=== PATIENT | female | born 1935 | race Caucasian/White ===

== ENCOUNTER 2019-12-24 17:00 | Emergency (ER) | payer MEDICARE ==
[~2019-12-24] VITALS: Ht 154.9 cm; Wt 53.5 kg
[2019-12-24 17:51] LABS: Source, Urine Clean Catch
[2019-12-24 18:04] LABS: Bilirubin, Urine Neg (Neg); Blood, Urine 3+ (Neg); Glucose Qualitative, Urine Neg (Neg); Ketones, Urine Neg (Neg); Leukocyte Esterase, Urine Neg (Neg); Nitrite, Urine Neg (Neg); Protein, Urine 3+ (Neg); Urobilinogen, Urine NORM (Normal); pH, Urine 6.5 (5.0-8.0)
[2019-12-24 18:14] LABS: Appearance, Urine Clear (Clear); Color, Urine Pale Yellow (P-Yellow)
[2019-12-24 18:15] LABS: Bacteria Few /hpf; Hyaline Casts 0-2 /lpf (0-2); Squamous Epithelial Cells Few /hpf (Few); White Blood Cells, Urine 0-2 /hpf (0-5)
[2019-12-24] MEDS ORDERED: Acetaminophen-1 EAC1 PO (20:36)
== END 2019-12-24 20:57 | disposition home or self-care (01) ==
LOC: ER 17:00
PROVIDERS: Emergency Medicine
DX: M54.5 Low back pain (principal); R31.9 Hematuria, unspecified
CPT/HCPCS: 72100; 76770; 81001; 99284-25; A9270-GY

== ENCOUNTER 2019-12-30 15:52 | Emergency (ER) | payer MEDICARE ==
[~2019-12-30] VITALS: Ht 154.9 cm; Wt 50.8 kg
[~2019-12-30 15:52] MED LIST: Acetaminophen-1 EAC1 PO
[2019-12-30] MEDS ORDERED: SPIRONOLACTONE25 MG PO (16:09)
[2019-12-30] MEDS ORDERED: CARVEDILOL12.5 MG PO (16:09)
[2019-12-30] MEDS ORDERED: AMLODIPINE BESYL5 MG PO (16:09)
[2019-12-30] MEDS ORDERED: Valtrex500 MG PO (16:09)
[2019-12-30] MEDS ORDERED: Magnesium Citr296 ML PO (18:18)
== END 2019-12-30 18:25 | disposition home or self-care (01) ==
LOC: ER 15:52
DX: K59.00 Constipation, unspecified (principal); Z79.899 Other long term (current) drug therapy
CPT/HCPCS: 74176; 99284-25

== ENCOUNTER 2020-01-03 11:06 | Emergency (ER) | payer MEDICARE ==
[~2020-01-03] VITALS: Ht 154.9 cm; Wt 45.4 kg
[~2020-01-03 11:06] MED LIST changes: +AMLODIPINE BESYL5 MG PO; +CARVEDILOL12.5 MG PO; +Magnesium Citr296 ML PO; +SPIRONOLACTONE25 MG PO; +Valtrex500 MG PO
[2020-01-03] MEDS ORDERED: LAVAP4L PO (13:06)
== END 2020-01-03 14:46 | disposition home or self-care (01) ==
LOC: ER 11:06
DX: K59.00 Constipation, unspecified (principal); Z79.899 Other long term (current) drug therapy
CPT/HCPCS: 99283

== ENCOUNTER 2020-01-10 13:17 | Emergency (ER) | payer MEDICARE ==
[~2020-01-10] VITALS: Ht 152.4 cm; Wt 45.4 kg
[~2020-01-10 13:17] MED LIST changes: +LAVAP4L PO
[2020-01-10 14:05] LABS: BASOPHILS ABSOLUTE AUTO 0.03 K/mm3 (0.00-0.23); BASOPHILS PERCENT AUTO 1 % (0-2); EOSINOPHILS ABSOLUTE AUTO 0.15 K/mm3 (0.00-0.68); EOSINOPHILS PERCENT AUTO 3 % (0-6); Hematocrit 42.5 % (33.0-51.0); Hemoglobin 14.1 g/dL (11.5-16.0); IMMATURE GRAN ABSOLUTE AUTO 0.02 K/mm3 (0.00-0.10); IMMATURE GRAN PERCENT AUTO 1 % (0-1); LYMPHOCYTES ABSOLUTE AUTO 0.77 K/mm3 (0.84-5.20); LYMPHOCYTES PERCENT AUTO 18 % (21-46); MONOCYTES ABSOLUTE AUTO 0.58 K/mm3 (0.16-1.47); MONOCYTES PERCENT AUTO 13 % (4-13); Mean Corpuscular HGB 31.7 pg (26.0-34.0); Mean Corpuscular HGB Conc 33.2 g/dL (31.5-36.5); Mean Corpuscular Volume 96 fL (80-100); Mean Platelet Volume 9.2 fL (9.1-12.4); NEUTROPHILS ABSOLUTE AUTO 2.86 K/mm3 (1.96-9.15); NEUTROPHILS PERCENT AUTO 65 % (41-73); Platelet Count 227 K/mm3 (150-400); RDW Coefficient Variation 12.2 % (11.7-14.2); RDW Standard Deviation 42.1 fL (35.1-46.3); Red Blood Cell Count 4.45 M/mm3 (3.80-5.20); White Blood Cell Count 4.41 K/mm3 (4.00-11.30)
[2020-01-10 14:28] LABS: Albumin, Blood 3.4 g/dL (3.4-5.0); Albumin/Globulin Ratio 0.9 (0.8-1.8); Bilirubin, Total 0.7 mg/dL (0.1-1.0); Bun/Creatinine Ratio 19.1 (12.0-20.0); Calcium, Blood 9.5 mg/dL (8.5-10.1); Creatinine, Blood 1.62 mg/dL (0.40-1.00); Globulin, Blood 3.9 g/dL (2.2-4.0); Potassium, Blood 4.4 mmol/L (3.5-5.5); Total Protein, Blood 7.3 g/dL (6.4-8.2)
== END 2020-01-10 16:31 | disposition home or self-care (01) ==
LOC: ER 13:17
PROVIDERS: Nurse Practitioner
DX: B02.9 Zoster without complications (principal); E87.1 Hypo-osmolality and hyponatremia; N18.9 Chronic kidney disease, unspecified; Z79.899 Other long term (current) drug therapy
CPT/HCPCS: 36415; 74176; 80053; 85025; 96361; 96374; 96376; 99284-25; A9270; J3010; J7030

== ENCOUNTER 2020-02-06 08:59 | Emergency (ER) | payer MEDICARE ==
[~2020-02-06] VITALS: Ht 154.9 cm; Wt 45.4 kg
[2020-02-06 10:26] LABS: Source, Urine Clean Catch
[2020-02-06 10:32] LABS: Bilirubin, Urine Neg (Neg); Blood, Urine 2+ (Neg); Glucose Qualitative, Urine Neg (Neg); Ketones, Urine Neg (Neg); Leukocyte Esterase, Urine Neg (Neg); Nitrite, Urine Neg (Neg); Protein, Urine 4+ (Neg); Urobilinogen, Urine NORM (Normal)
[2020-02-06 10:39] LABS: Appearance, Urine Clear (Clear); Color, Urine Yellow (P-Yellow)
[2020-02-06 10:40] LABS: Bacteria Not Seen /hpf; Squamous Epithelial Cells Rare /hpf (Few); White Blood Cells, Urine 0-2 /hpf (0-5)
[2020-02-06] MEDS ORDERED: DULCOLAX5 MG PO (11:08)
[2020-02-06] MEDS ORDERED: LIDO700A20 TOP (11:08)
== END 2020-02-06 10:59 | disposition home or self-care (01) ==
LOC: ER 08:59
PROVIDERS: Physician Assistant
DX: K59.00 Constipation, unspecified (principal); B02.9 Zoster without complications
CPT/HCPCS: 74022; 81001; 99283-25

== ENCOUNTER 2020-09-14 08:30 | Emergency (ER) | payer MEDICARE ==
[~2020-09-14] VITALS: Ht 152.4 cm; Wt 46.3 kg
[~2020-09-14 08:30] MED LIST changes: -AMLODIPINE BESYL5 MG PO; -CARVEDILOL12.5 MG PO; +DULCOLAX5 MG PO; +LIDO700A20 TOP; -SPIRONOLACTONE25 MG PO
[2020-12-24] MEDS ORDERED: ACET500 PO (20:37)
== END 2020-09-14 10:11 | disposition home or self-care (01) ==
LOC: ER 08:30
DX: S81.812A Laceration without foreign body, left lower leg, initial encounter (principal); S81.811A Laceration without foreign body, right lower leg, initial encounter; Z79.899 Other long term (current) drug therapy; W01.0XXA Fall on same level from slipping, tripping and stumbling without subsequent striking against object, initial encounter
CPT/HCPCS: 99282

== ENCOUNTER 2020-10-05 18:03 | Observation (INO) | payer MEDICARE ==
[~2020-10-05] VITALS: Ht 154.9 cm; Wt 42.7 kg
[2020-10-05 18:48] LABS: BASOPHILS ABSOLUTE AUTO 0.03 K/mm3 (0.00-0.23); BASOPHILS PERCENT AUTO 1 % (0-2); EOSINOPHILS ABSOLUTE AUTO 0.02 K/mm3 (0.00-0.68); EOSINOPHILS PERCENT AUTO 0 % (0-6); Hemoglobin 15.2 g/dL (11.5-16.0); IMMATURE GRAN ABSOLUTE AUTO 0.07 K/mm3 (0.00-0.10); IMMATURE GRAN PERCENT AUTO 1 % (0-1); LYMPHOCYTES ABSOLUTE AUTO 0.62 K/mm3 (0.84-5.20); LYMPHOCYTES PERCENT AUTO 11 % (21-46); MONOCYTES PERCENT AUTO 11 % (4-13); Mean Corpuscular HGB 32.4 pg (26.0-34.0); Mean Corpuscular Volume 105 fL (80-100); Mean Platelet Volume 10.7 fL (9.1-12.4); NEUTROPHILS ABSOLUTE AUTO 4.19 K/mm3 (1.96-9.15); NEUTROPHILS PERCENT AUTO 76 % (41-73); Platelet Count 163 K/mm3 (150-400); RDW Coefficient Variation 13.5 % (11.7-14.2); RDW Standard Deviation 51.7 fL (35.1-46.3); Red Blood Cell Count 4.69 M/mm3 (3.80-5.20); White Blood Cell Count 5.53 K/mm3 (4.00-11.30)
[2020-10-05 19:20] LABS: Albumin, Blood 3.3 g/dL (3.4-5.0); Bilirubin, Total 0.3 mg/dL (0.1-1.0); Bun/Creatinine Ratio 27.3 (12.0-20.0); Calcium, Blood 9.2 mg/dL (8.5-10.1); Creatinine, Blood 1.61 mg/dL (0.40-1.00); Globulin, Blood 3.3 g/dL (2.2-4.0); Potassium, Blood 4.5 mmol/L (3.5-5.5); Total Protein, Blood 6.6 g/dL (6.4-8.2)
[2020-10-05 21:51] LABS: Source, Urine Clean Catch
[2020-10-05 21:56] LABS: Bilirubin, Urine Neg (Neg); Blood, Urine 2+ (Neg); Glucose Qualitative, Urine Neg (Neg); Ketones, Urine Neg (Neg); Leukocyte Esterase, Urine Neg (Neg); Nitrite, Urine Neg (Neg); Protein, Urine 4+ (Neg); Urobilinogen, Urine NORM (Normal)
[2020-10-05 21:59] LABS: Appearance, Urine Clear (Clear); Color, Urine Yellow (P-Yellow)
[2020-10-05 22:06] LABS: Bacteria Few /hpf; Squamous Epithelial Cells Rare /hpf (Few); White Blood Cells, Urine Rare /hpf (0-5)
[2020-10-05 22:07] LABS: Amorphous Light (0-Heavy)
[2020-10-06 06:23] LABS: BASOPHILS ABSOLUTE AUTO 0.02 K/mm3 (0.00-0.23); BASOPHILS PERCENT AUTO 0 % (0-2); EOSINOPHILS ABSOLUTE AUTO 0.05 K/mm3 (0.00-0.68); EOSINOPHILS PERCENT AUTO 1 % (0-6); Hematocrit 44.7 % (33.0-51.0); Hemoglobin 13.5 g/dL (11.5-16.0); IMMATURE GRAN ABSOLUTE AUTO 0.05 K/mm3 (0.00-0.10); IMMATURE GRAN PERCENT AUTO 1 % (0-1); LYMPHOCYTES ABSOLUTE AUTO 0.69 K/mm3 (0.84-5.20); LYMPHOCYTES PERCENT AUTO 15 % (21-46); MONOCYTES ABSOLUTE AUTO 0.49 K/mm3 (0.16-1.47); MONOCYTES PERCENT AUTO 11 % (4-13); Mean Corpuscular HGB 31.3 pg (26.0-34.0); Mean Corpuscular HGB Conc 30.2 g/dL (31.5-36.5); Mean Corpuscular Volume 104 fL (80-100); Mean Platelet Volume 10.9 fL (9.1-12.4); NEUTROPHILS ABSOLUTE AUTO 3.23 K/mm3 (1.96-9.15); NEUTROPHILS PERCENT AUTO 71 % (41-73); Platelet Count 123 K/mm3 (150-400); RDW Coefficient Variation 13.3 % (11.7-14.2); RDW Standard Deviation 51.7 fL (35.1-46.3); Red Blood Cell Count 4.31 M/mm3 (3.80-5.20); White Blood Cell Count 4.53 K/mm3 (4.00-11.30)
[2020-10-06 06:33] LABS: Albumin, Blood 2.8 g/dL (3.4-5.0); Bilirubin, Total 0.2 mg/dL (0.1-1.0); Bun/Creatinine Ratio 27.2 (12.0-20.0); Calcium, Blood 8.7 mg/dL (8.5-10.1); Creatinine, Blood 1.69 mg/dL (0.40-1.00); Globulin, Blood 2.9 g/dL (2.2-4.0); Potassium, Blood 4.4 mmol/L (3.5-5.5); Total Protein, Blood 5.7 g/dL (6.4-8.2)
--- NOTE | 2020-10-06 14:00 | NUR ---
PT ADMITTED TO ROOM 310 FROM ED AT 1305. TRANSFERRED TO BED FROM [facility] WITH ASSIST. CAME UP WITH OXYGEN IN PLACE. PT REPORTED SHE FELT LIKE WHENEVER SHE WAKES UP SHE IS IN A NEW PLACE.
--- NOTE | 2020-10-06 19:09 | NUR ---
SHIFT SUMMARY SON AT BEDSIDE MOST OF THE AFTERNOON. HE REPORTS PT IS MORE APPROPRIATE THIS AFTERNOON THAN LAST NIGHT. PT HAS BEEN ON O2 SINCE ARRIVAL TO ROOM. ABLE TO ANSWER ORIENTATION QUESTIONS APPROPRIATELY BUT SAYS SHE CAN'T REMEMBER HOW TO TAKE A DEEP BREATH IN AND WHEN ASKED TAKES A SHORT BREATH IN AND BLOWS OUT HARD. HAS A WEAK COUGH AND HAS DIFFICULTY CLEARING HER THROAT. SON REPORTS SHE GENERALLY SOUNDS A LITTLE GURGGLY WHEN SHE TALKS AND HE FELT IT MAY BE RELATED TO HER POST NASAL DRIP. REPORTED BEING HUNGRY CLOSE TO DINNERTIME.
[2020-10-07 05:21] LABS: BASOPHILS ABSOLUTE AUTO 0.02 K/mm3 (0.00-0.23); BASOPHILS PERCENT AUTO 1 % (0-2); EOSINOPHILS ABSOLUTE AUTO 0.05 K/mm3 (0.00-0.68); EOSINOPHILS PERCENT AUTO 1 % (0-6); Hematocrit 41.3 % (33.0-51.0); Hemoglobin 12.3 g/dL (11.5-16.0); IMMATURE GRAN ABSOLUTE AUTO 0.02 K/mm3 (0.00-0.10); IMMATURE GRAN PERCENT AUTO 1 % (0-1); LYMPHOCYTES ABSOLUTE AUTO 0.57 K/mm3 (0.84-5.20); LYMPHOCYTES PERCENT AUTO 16 % (21-46); MONOCYTES ABSOLUTE AUTO 0.44 K/mm3 (0.16-1.47); MONOCYTES PERCENT AUTO 12 % (4-13); Mean Corpuscular HGB 31.7 pg (26.0-34.0); Mean Corpuscular HGB Conc 29.8 g/dL (31.5-36.5); Mean Corpuscular Volume 106 fL (80-100); Mean Platelet Volume 10.9 fL (9.1-12.4); NEUTROPHILS ABSOLUTE AUTO 2.53 K/mm3 (1.96-9.15); NEUTROPHILS PERCENT AUTO 70 % (41-73); Platelet Count 124 K/mm3 (150-400); RDW Coefficient Variation 13.7 % (11.7-14.2); RDW Standard Deviation 53.8 fL (35.1-46.3); Red Blood Cell Count 3.88 M/mm3 (3.80-5.20); White Blood Cell Count 3.63 K/mm3 (4.00-11.30)
[2020-10-07 05:44] LABS: Albumin, Blood 2.6 g/dL (3.4-5.0); Bilirubin, Total 0.3 mg/dL (0.1-1.0); Bun/Creatinine Ratio 27.5 (12.0-20.0); Calcium, Blood 8.7 mg/dL (8.5-10.1); Creatinine, Blood 2.04 mg/dL (0.40-1.00); Globulin, Blood 2.7 g/dL (2.2-4.0); Potassium, Blood 4.5 mmol/L (3.5-5.5); Total Protein, Blood 5.3 g/dL (6.4-8.2)
--- NOTE | 2020-10-07 17:01 | NUR ---
PT WAS DISCHARGED HOME WITH BELONGINGS AND FAMILY AT SIDE. PT MADE NO C/O PAIN OR SOB AT THE TIME OF DISCHARGE. PT WAS EDUCATED ON FOLLOW APPOINTMENTS NEEDED. IV WAS DC'D AND WNL.
[2020-12-24] MEDS ORDERED: ACET500 PO (20:37)
== END 2020-10-07 16:33 | disposition home health service (06) ==
LOC: ER 18:03 → ERHOLD 18:04 → ER 10-06 00:13 → ERHOLD 10-06 00:13 → MEDS 10-06 00:13 → ERHOLD 10-06 13:06 → MEDS 10-06 13:06 → ENPENDDIS 10-07 15:22 → MEDS 10-07 16:33
PROVIDERS: Internal Medicine; Physician Assistant; ADMIT Internal Medicine
DX: G92 Toxic encephalopathy (principal); J96.01 Acute respiratory failure with hypoxia; J90 Pleural effusion, not elsewhere classified; K59.00 Constipation, unspecified; N18.4 Chronic kidney disease, stage 4 (severe); I13.0 Hypertensive heart and chronic kidney disease with heart failure and stage 1 through stage 4 chronic kidney disease, or unspecified chronic kidney disease; I50.9 Heart failure, unspecified; G47.33 Obstructive sleep apnea (adult) (pediatric); Z66 Do not resuscitate
CPT/HCPCS: 36415; 70450; 71046; 74176; 80053; 81001; 83880; 85025; 87086; 93005; 93010; 93306; 94761; 97110; 97116; 97129; 97162; 97165; 97530; 99285-25; A9270; G0378; J1650; J1940; P9612

== ENCOUNTER 2020-11-10 10:48 | Emergency (ER) | payer MEDICARE ==
[~2020-11-10] VITALS: Ht 154.9 cm; Wt 43.5 kg
[2020-11-10 11:23] LABS: BASOPHILS ABSOLUTE AUTO 0.02 K/mm3 (0.00-0.23); BASOPHILS PERCENT AUTO 1 % (0-2); EOSINOPHILS ABSOLUTE AUTO 0.11 K/mm3 (0.00-0.68); EOSINOPHILS PERCENT AUTO 3 % (0-6); Hematocrit 40.3 % (33.0-51.0); Hemoglobin 12.9 g/dL (11.5-16.0); IMMATURE GRAN ABSOLUTE AUTO 0.01 K/mm3 (0.00-0.10); IMMATURE GRAN PERCENT AUTO 0 % (0-1); LYMPHOCYTES ABSOLUTE AUTO 0.44 K/mm3 (0.84-5.20); LYMPHOCYTES PERCENT AUTO 14 % (21-46); MONOCYTES ABSOLUTE AUTO 0.36 K/mm3 (0.16-1.47); MONOCYTES PERCENT AUTO 11 % (4-13); Mean Corpuscular HGB 32.7 pg (26.0-34.0); Mean Corpuscular Volume 102 fL (80-100); Mean Platelet Volume 9.7 fL (9.1-12.4); NEUTROPHILS ABSOLUTE AUTO 2.26 K/mm3 (1.96-9.15); NEUTROPHILS PERCENT AUTO 71 % (41-73); Platelet Count 148 K/mm3 (150-400); RDW Coefficient Variation 12.8 % (11.7-14.2); RDW Standard Deviation 48.5 fL (35.1-46.3); Red Blood Cell Count 3.94 M/mm3 (3.80-5.20)
[2020-11-10 11:36] LABS: Albumin, Blood 3.3 g/dL (3.4-5.0); Bilirubin, Total 0.3 mg/dL (0.1-1.0); Bun/Creatinine Ratio 32.7 (12.0-20.0); Creatinine, Blood 1.65 mg/dL (0.40-1.00); Globulin, Blood 3.3 g/dL (2.2-4.0); Potassium, Blood 4.9 mmol/L (3.5-5.5); Total Protein, Blood 6.6 g/dL (6.4-8.2)
[2020-11-10 14:39] LABS: Source, Urine Clean Catch
[2020-11-10 14:53] LABS: Appearance, Urine Cloudy (Clear); Bilirubin, Urine Neg (Neg); Blood, Urine 2+ (Neg); Color, Urine Yellow (P-Yellow); Glucose Qualitative, Urine Neg (Neg); Ketones, Urine Neg (Neg); Leukocyte Esterase, Urine 2+ (Neg); Nitrite, Urine Neg (Neg); Protein, Urine 3+ (Neg); Urobilinogen, Urine NORM (Normal)
[2020-11-10 15:07] LABS: Bacteria Many /hpf; Squamous Epithelial Cells Few /hpf (Few); White Blood Cells, Urine TNTC /hpf (0-5)
[2020-11-10] MEDS ORDERED: Keflex500 MG PO (15:53)
[2020-12-24] MEDS ORDERED: ACET500 PO (20:37)
== END 2020-11-10 16:25 | disposition home or self-care (01) ==
LOC: ER 10:48
PROVIDERS: Emergency Medicine
DX: S81.811A Laceration without foreign body, right lower leg, initial encounter (principal); N39.0 Urinary tract infection, site not specified; Z79.899 Other long term (current) drug therapy; W18.30XA Fall on same level, unspecified, initial encounter
CPT/HCPCS: 36415; 80053; 81001; 85025; 87077; 87086; 87186; 93005; 93010; 96365; 99284-25; J0696

== ENCOUNTER 2020-12-17 12:19 | Inpatient (IN) | payer MEDICARE ==
[~2020-12-17] VITALS: Ht 144.8 cm; Wt 41.6 kg
[~2020-12-17 12:19] MED LIST changes: +Keflex500 MG PO
[2020-12-17 13:29] LABS: Source, Urine Clean Catch
[2020-12-17 13:31] LABS: Appearance, Urine Hazy (Clear); Bilirubin, Urine Neg (Neg); Blood, Urine 2+ (Neg); Color, Urine Yellow (P-Yellow); Glucose Qualitative, Urine Neg (Neg); Ketones, Urine Neg (Neg); Leukocyte Esterase, Urine 1+ (Neg); Nitrite, Urine Neg (Neg); Protein, Urine 4+ (Neg); Urobilinogen, Urine NORM (Normal)
[2020-12-17 13:56] LABS: Bacteria Many /hpf; Granular Casts 0-2 /lpf (0); Squamous Epithelial Cells Few /hpf (Few)
[2020-12-17 14:38] LABS: Albumin, Blood 3.2 g/dL (3.4-5.0); Albumin/Globulin Ratio 1.1 (0.8-1.8); Bilirubin, Total 0.3 mg/dL (0.1-1.0); Bun/Creatinine Ratio 25.5 (12.0-20.0); Calcium, Blood 8.8 mg/dL (8.5-10.1); Creatinine, Blood 1.96 mg/dL (0.40-1.00); Potassium, Blood 5.2 mmol/L (3.5-5.5); Total Protein, Blood 6.2 g/dL (6.4-8.2)
[2020-12-17 17:47] LABS: BASOPHILS ABSOLUTE AUTO 0.03 K/mm3 (0.00-0.23); BASOPHILS PERCENT AUTO 1 % (0-2); EOSINOPHILS ABSOLUTE AUTO 0.02 K/mm3 (0.00-0.68); EOSINOPHILS PERCENT AUTO 0 % (0-6); Hematocrit 42.3 % (33.0-51.0); IMMATURE GRAN ABSOLUTE AUTO 0.04 K/mm3 (0.00-0.10); IMMATURE GRAN PERCENT AUTO 1 % (0-1); LYMPHOCYTES PERCENT AUTO 15 % (21-46); MONOCYTES PERCENT AUTO 11 % (4-13); Mean Corpuscular HGB 32.8 pg (26.0-34.0); Mean Corpuscular HGB Conc 30.7 g/dL (31.5-36.5); Mean Corpuscular Volume 107 fL (80-100); Mean Platelet Volume 10.2 fL (9.1-12.4); NEUTROPHILS ABSOLUTE AUTO 3.49 K/mm3 (1.96-9.15); NEUTROPHILS PERCENT AUTO 73 % (41-73); Platelet Count 132 K/mm3 (150-400); RDW Coefficient Variation 12.7 % (11.7-14.2); RDW Standard Deviation 49.8 fL (35.1-46.3); Red Blood Cell Count 3.96 M/mm3 (3.80-5.20); White Blood Cell Count 4.78 K/mm3 (4.00-11.30)
--- NOTE | 2020-12-17 21:37 | NUR ---
PATIENT IS A NEW ADMIT FROM THE ED. THREE PERSON TRANSFER FROM [facility] TO BED. PATIENT TOO WEAK WITH TWO ASSIST W/FWW TO [facility] AND SAT BACK DOWN ON BED. BEDREST. ALERT TO SELF AND SON IN ROOM. FLIGHT OF IDEAS. SON LEFT AFTER ADMIT. HX DEMENTIA. ED RN REPORTS PATIENT CONFRONTATIONAL, AGRESSIVE BEHAVIOR, ANGRY, AND SCRATCHING STAFF. PATIENT ORIENTED TO ROOM AND CALL LIGHT. DENIES PAIN AND N/V. STATING 87% ON ROOM AIR. PLACED ON 2L O2 NC AND STATING 96%. SON REPORTS HE IS CHECKING ON [facility].
--- NOTE | 2020-12-17 21:45 | NUR ---
PATIENT STARTED ON NS @ 75 mL/HR. HOSPITALIST JUHI CLARK ORDERED BILATERAL SOFT WRIST RESTRAINTS WITH ADINA VEST TO PROTECT LINES, CORDS, FALL RISK, AND AGRESSIVE BEHAVIOR.
--- NOTE | 2020-12-17 23:35 | NUR ---
PATIENT CONFUSED AND BED EXIT ALARM. PULLED BILATERAL WRIST RESTRAINTS OFF. PATIENT NOT SURE HOW AND WHY SHE IS HERE. ORIENTED TO PLACE AND SITUATION. ALARM ACTIVATED AND RESTRAINTS BACK IN PLACE.
--- NOTE | 2020-12-18 03:00 | NUR ---
RT REPORTS HE SETUP CONTINUOUS PULSE OXIMETRY AND INCREASED O2 FLOW RATE FROM 2L TO 4L O2 NC. PATIENT WAS STATING IN HIGH 80'S AND NOW STATING 96%.
--- NOTE | 2020-12-18 03:09 | NUR ---
SHIFT SUMMARY RT PLACED PATIENT ON 4L O2 NC FROM 2L O2 NC AND RA ON ADMIT. STATING 96% ON CONTINUOUS PULSE OXIMETRY. HX SHA. ALERT TO SELF AND SON. NO MONTH, PLACE, DATE, OR HOW SHE GOT TO FACILITY. BEDREST. CONFUSED WITH HX OF DEMENTIA. WORRIED ABOUT PEOPLE COMING TO TRY AND KILL HER. FLIGHT OF IDEAS. HOSPITALIST JUHI ENERGY DERIVATIVES TRADER ORDERED BILATERAL SOFT WRIST RESTRAINTS AND ADINA VEST TO PREVENT FALLS, PULLING AT LINES AND CORDS AND INCREASED AGITATION. DENIES PAIN AND N/V. PIV REMAINS INTACT. NS INFUSING AT 75 mL/HR. SON REPORTS HE IS CHECKING ON [facility]. BED IN LOWEST POSITION AND ALARM ACTIVATED. WILL CONTINUE TO MONITOR UNTIL DAY SHIFT NURSE ASSUMES CARE.
[2020-12-18 05:21] LABS: Hematocrit 45.5 % (33.0-51.0); Hemoglobin 13.9 g/dL (11.5-16.0); Mean Corpuscular HGB 32.5 pg (26.0-34.0); Mean Corpuscular HGB Conc 30.5 g/dL (31.5-36.5); Mean Corpuscular Volume 106 fL (80-100); Mean Platelet Volume 10.2 fL (9.1-12.4); Platelet Count 153 K/mm3 (150-400); RDW Coefficient Variation 13.1 % (11.7-14.2); RDW Standard Deviation 51.3 fL (35.1-46.3); Red Blood Cell Count 4.28 M/mm3 (3.80-5.20); White Blood Cell Count 5.35 K/mm3 (4.00-11.30)
[2020-12-18 05:45] LABS: Bun/Creatinine Ratio 25.5 (12.0-20.0); Calcium, Blood 8.1 mg/dL (8.5-10.1); Potassium, Blood 4.4 mmol/L (3.5-5.5)
--- NOTE | 2020-12-18 08:30 | NUR ---
TRANSFER TO 351 PT TRANSFERED TO ROOM 351. PT SLEEPING AT TIME OF ARRIVAL. LETHARGIC. ALERT TO PAINFUL STIMULI & MOVEMENT. THIS IS CONSISTANT FROM PREVIOUS NURSES REPORT. CALL LIGHT IN REACH. RESTRAINTS IN PLACE.
--- NOTE | 2020-12-18 10:00 | NUR ---
O2 TITRATED O2 TITRATED DOWN FROM 4L O2 TO 3L O2. PT SATING AT 97% AFTER TITRATION.
[2020-12-18 11:47] LABS: Base Excess Venous 8.9 mmol/L; Bicarbonate Venous 29.4 mmol/L (24.0-30.0); PCO2 Venous 83.1 mmHg (38-42); PO2 Venous 184 mmHg (38-42); pH Blood Venous 7.25 (7.34-7.37)
--- NOTE | 2020-12-18 12:07 | NUR ---
BIPAP DR. CHAUDHARI CALLED BACK AFTER BEING NOTIFIED OF VBG VALUES. BIPAP ORDER IN PLACE. HARPREET RT NOTIFIED & TO SET UP M SERIES BIPAP.
--- NOTE | 2020-12-18 13:35 | NUR ---
08[address] CHAUDHARI NOTIFIED, RECIEVED ORDERS TO STRAIGHT CATH FOR BLADDER SCAN GREATER THAN 450 ML Q6 NO VOID, AND BLADDER SCAN Q6H. 0830 PT TRANSFERED TO SCU FOR [facility] MONITORING SECONDARY RESTRAINTS. PT STRAIGHT CATHED, VOLUME DOCUMENTED IN I&O. REPORT GIVEN TO CLARA MANDEL PRIOR TO TRANSFER.
[2020-12-18 15:46] LABS: Base Excess Venous 13.5 mmol/L; Bicarbonate Venous 33.4 mmol/L (24.0-30.0); PCO2 Venous 68.6 mmHg (38-42); PO2 Venous 30.8 mmHg (38-42); pH Blood Venous 7.36 (7.34-7.37)
--- NOTE | 2020-12-18 16:22 | NUR ---
LOC IMPROVED PT NOW ALERT. ORIENTED TO SELF ONLY. UNABLE TO PROVIDE THE YEAR OR HER BIRTHDAY. PT VERY CONFUSED. ASKING "WILL YOU BE KILLED TODAY TOO". PT SON STATES SHE HAS BEEN HAVING PARANOID DELUSIONS FOR A FEW DAYS PRIOR TO ADMISSION. PT TOO PARANOID TO EAT OR DRINK, STATING "I KNOW YOU PUT SOMETHING IN THAT". PT IS SPEAKING IN FULL SENTENCES, WHICH IS IMPROVEMENT FROM EARLIER IN THE SHIFT.
--- NOTE | 2020-12-18 18:25 | NUR ---
SHIFT SUMMARY PT MENTATION HAS IMPROVED GREATLY T/O THE SHIFT, ESPECIALLY AFTER THE USE OF THE BIPAP. REPEAT VBG SHOWED IMPROVED VALUES AND A NORMAL PH. DR. CHAUDHARI & DR. DHALIWAL AWARE. DR. CHAUDHARI INSTRUCTED TO PLACE PT BACK ON BIPAP FOR NIGHTTIME, BUT OKAY TO LET HER EAT AND TAKE A BREAK THE REST THE SHIFT. PT SON BROUGHT HER FIVE GUYS FOR DINNER, PT AT APPROX 25%. NO PROBLEMS SWALLOWING. WOUND ON R FISHER PHOTOGRAPHED & REDRESSED. PT SON STATES IT WAS FROM A PRIOR FALL AT HOME. PT BLADDER SCANNED TODAY WITH LESS THAN 200 VOLUME. LATER THIS AFTERNOON, PT WAS TRANSFERED TO [facility] [place] A 2P ASSIST AND VOIDED ON HER OWN. LR RUNNING 125 AN HOUR IN A NEW IV AFTER PT PULLED OUT HER ORIGINAL IV. IV CONCEALED WITH COBAN, SO FAR PT IS LEAVING IT ALONE. PT CONTINUES TO NOT NEED RESTRAINTS AT THIS TIME. PT EXTREMELY TIRED AFTER TRANSFER TO [facility] AND BACK, PT NOT SLEEPING HARD, SO AFTERNOON PILLS WERE HELD IT IS UNSAFE TO SWALLOW WITH PT BEING THIS TIRED. BED ALARM ON. REMOTE MONITORING IN PLACE. VS RECHECKED & REVIEWED. NO OTHER ACUTE CHANGES IN ASSESSMENT AT THIS TIME. SEE PREVIOUS NOTES. PT SON, TAMIE UPDATED ON PT CONDITION.
[2020-12-19 05:17] LABS: Calcium, Blood 8.4 mg/dL (8.5-10.1); Creatinine, Blood 1.71 mg/dL (0.40-1.00); Potassium, Blood 4.6 mmol/L (3.5-5.5)
--- NOTE | 2020-12-19 05:35 | NUR ---
PT IS CONFUSED, TRIED MULTIPLE TIMES TO CLIMB OUT OF BED. ORDER RECIEVED FOR ADINA VEST, HALDOL GIVEN PER EMAR. RT ATTEMPTED TO PLACE CPAP ON PT THIS SHIFT AND PT WOULD NOT KEEP ON. PT REFUSED TO WEAR O2 TUBING, BIOX WAS DOWN TO 83% ORDER RECIEVED TO PLACE SOFT BILATERAL WRIST RESTRAINTS ON PT. PT NOW WEARING 1.5 L O2 VIA N/C O2 BETWEEN 88%-94%. INCONTINENT WEARING ATTENDS.
[2020-12-19 08:06] LABS: Base Excess Venous 10.8 mmol/L; Bicarbonate Venous 32.3 mmol/L (24.0-30.0); PCO2 Venous 58.9 mmHg (38-42); PO2 Venous 49.1 mmHg (38-42); pH Blood Venous 7.39 (7.34-7.37)
--- NOTE | 2020-12-19 08:36 | NUR ---
NOTIFIED LUNGS COARSE BASES. IN ROOM
--- NOTE | 2020-12-19 10:34 | NUR ---
PER IV FLUIDS DECREASED TO 75 ML/HR.
--- NOTE | 2020-12-19 17:45 | NUR ---
ALERT TO SELF AND FAMILY. KNOWS SHE IS IN HOSPITAL. HAS STATED SHE "HAS DEMENTIA AND NEEDS 24/7 CARE." SHAY HAS BEEN IN TO SEE. REORIENTED OFTEN AND ADVISED WE NEED TO BE IN ROOM TO HELP HER SO SHE DOES NOT FALL. COOPERATIVE. IV INFUSING. SON WAS IN TO VISIT. BOOK CART CAME AROUND AND PATIENT HAS SOMETHING TO OCCUPY HERSELF W/A BOOK TO READ AND A COLORING BOOK. ONE PERSON ASSIST. RESTRAINTS D'C THIS A.M. SHAHEEN.
--- NOTE | 2020-12-20 04:36 | NUR ---
SHIFT SUMMARY AWAKE AT INTERVALS. A FEW ATTEMPTS TO GET OUT OF BED. REDIRECTED TO USE CALL LIGHT. IVF INFUSING PER MD ORDERS. O2 PER NC. RT WORKING WITH PT RE CO2 LEVELS, BUT PT REFUSING TO COMPLY WITH TX. SEE RT DOCUMENTATIONS FOR DETAILS. HOB ELEVATED. ALERT AND ORIENTED. RESTING QUIETLY AT THIS WRITING. CALL LIGHT IN REACH
--- NOTE | 2020-12-20 12:33 | NUR ---
PATIENT GOT UP TO THE C THIS MORNING. SHE SAT UP IN THE CHAIR FOR BREAKFAST AND NAPPED THERE FOR A WHILE. THE PATIENT WAS TRANSFERRED BACK TO BED ONCE SHE BECAME MORE CONFUSED. SHE IS SITTING UP IN BED FOR LUNCH AT THIS TIME. CPAP ON FOR NAPS.
--- NOTE | 2020-12-20 18:24 | NUR ---
THE PATIENT IS ALERT AND ORIENTED THIS AFTERNOON. SHE WAS CONFUSED THIS MORNING AFTER BREAKFAST. THE PLAN IS FOR THE PATIENT TO DISCHARGE TO [facility] TOMORROW AFTERNOON. CONTINUOUS PULSE OXIMETRY IS IN PLACE. THE PATIENT TRANSFERS 1-2PA TO THE CHAIR, BSC OR BATHROOM. SHE WORKED WITH PT AND OT TODAY. WILL CONTINUE TO MONITOR
--- NOTE | 2020-12-21 03:05 | NUR ---
SHIFT SUMMARY BECAME SOMEWHAT ANXIOUS AND DEFIANT AT HS, PULLING OFF HER O2 TUBING AND TO PULL AT IV SITE. CALL PLACED TO MD PLASTERER FOREMAN AND RESTRAINT ORDERS (SOFT BILAT WRIST) OBTAINED. PT REFUSED TO COMPLY WITH RT RE CPAP, SEE RT DOCUMENTATION FOR DETAILS. ONCE PLACED IN WRIST RESTRAINTS, SEEMED TO REFUSE MEDS AND WAS NONRECEPTIVE TO INTERACTIONS WITH STAFF. IVF OF LR CONTINUES AT 75 ML/HR. A FEW HOURS AFTER WRIST RESTRAINTS INITIATED SEEMED MORE RECEPTIVE TO STAFF INTERACTIONS AND THEN SEEMED TO GO TO SLEEP. CALL LIGHT IN REACH.
--- NOTE | 2020-12-21 04:14 | NUR ---
BILAT WRIST RESTRAINTS DISCONTINUED. NOT PULLING AT LINES AND MORE RECEPTIVE TO REDIRECTION. CALL LIGHT IN REACH
[2020-12-21 05:16] LABS: Bun/Creatinine Ratio 22.1 (12.0-20.0); Calcium, Blood 7.5 mg/dL (8.5-10.1); Creatinine, Blood 1.04 mg/dL (0.40-1.00); Potassium, Blood 4.4 mmol/L (3.5-5.5)
[2020-12-21 10:07] LABS: Influenza A, PCR NEGATIVE (NEGATIVE); Influenza B, PCR NEGATIVE (NEGATIVE); Resp Syncytial Virus, PCR NEGATIVE (NEGATIVE); SARS-Cov-2 (COVID-19) PCR, MMC NEGATIVE (NEGATIVE)
--- NOTE | 2020-12-21 15:14 | NUR ---
PT SON HERE TO TAKE PT HOME. REVIEWED D/C WITH PT AND SON. HE VERBALIZED UNDERSTANTING MEDS AND INST. IV PULLED INTAC.T NO TELE. ON O2 AND THERE IS O2 TRANSPORT TANK FROM [facility] AT BEDSIDE AWAITING D/C. SON IS FAMILIAR WITH OPERATION OF O2. HAS O2 AT HOME AND TOOK TO [facility] AWAITING PT. GAVE PACKET TO SON FOR [facility]. AIDE TO ASSIST HER TO GETTING DRESSED.
--- NOTE | 2020-12-21 15:27 | NUR ---
PT WHEELED TO DOOR BY [facility] AT [id number]
== END 2020-12-21 15:25 | DRG 689 ==
LOC: ER 12:19 → ERHOLD 12:20 → MEDS 20:02
PROVIDERS: Emergency Medicine; Family Medicine; Internal Medicine; Nurse Practitioner Acute Care; ADMIT Hospitalist
DX: N39.0 Urinary tract infection, site not specified (principal); E43 Unspecified severe protein-calorie malnutrition; G92 Toxic encephalopathy; E87.2 Acidosis; I50.32 Chronic diastolic (congestive) heart failure; N17.9 Acute kidney failure, unspecified; R64 Cachexia; I13.0 Hypertensive heart and chronic kidney disease with heart failure and stage 1 through stage 4 chronic kidney disease, or unspecified chronic kidney disease; N18.30 Chronic kidney disease, stage 3 unspecified; Z66 Do not resuscitate; G30.9 Alzheimer's disease, unspecified; F02.80 Dementia in other diseases classified elsewhere, unspecified severity, without behavioral disturbance, psychotic disturbance, mood disturbance, and anxiety; E86.0 Dehydration; G47.33 Obstructive sleep apnea (adult) (pediatric); B96.20 Unspecified Escherichia coli [E. coli] as the cause of diseases classified elsewhere
CPT/HCPCS: 0241U; 36415; 51701; 80048; 80053; 81001; 82803; 83735; 84100; 85025; 85027; 87040; 87086; 94660; 94761; 94762; 96365; 96372; 97110; 97116; 97162; 97165; 97530; 97535; 99285; A9270; A9270-GY; G0378; J0360; J0696; J1630; J1644; J7030; J7120

== ENCOUNTER 2020-12-24 15:24 | Inpatient (IN) | payer MEDICARE ==
[~2020-12-24] VITALS: Ht 165.1 cm; Wt 48.3 kg
[2020-12-24 16:00] LABS: BASOPHILS ABSOLUTE AUTO 0.02 K/mm3 (0.00-0.23); BASOPHILS PERCENT AUTO 1 % (0-2); EOSINOPHILS ABSOLUTE AUTO 0.07 K/mm3 (0.00-0.68); EOSINOPHILS PERCENT AUTO 2 % (0-6); Hematocrit 44.5 % (33.0-51.0); Hemoglobin 13.9 g/dL (11.5-16.0); IMMATURE GRAN ABSOLUTE AUTO 0.03 K/mm3 (0.00-0.10); IMMATURE GRAN PERCENT AUTO 1 % (0-1); LYMPHOCYTES ABSOLUTE AUTO 0.47 K/mm3 (0.84-5.20); LYMPHOCYTES PERCENT AUTO 15 % (21-46); MONOCYTES ABSOLUTE AUTO 0.35 K/mm3 (0.16-1.47); MONOCYTES PERCENT AUTO 11 % (4-13); Mean Corpuscular HGB 33.3 pg (26.0-34.0); Mean Corpuscular HGB Conc 31.2 g/dL (31.5-36.5); Mean Corpuscular Volume 107 fL (80-100); Mean Platelet Volume 10.2 fL (9.1-12.4); NEUTROPHILS ABSOLUTE AUTO 2.31 K/mm3 (1.96-9.15); NEUTROPHILS PERCENT AUTO 71 % (41-73); Platelet Count 150 K/mm3 (150-400); RDW Coefficient Variation 12.9 % (11.7-14.2); Red Blood Cell Count 4.18 M/mm3 (3.80-5.20); White Blood Cell Count 3.25 K/mm3 (4.00-11.30)
[2020-12-24 16:10] LABS: Base Excess Venous 10.7 mmol/L; Bicarbonate Venous 31.6 mmol/L (24.0-30.0); PCO2 Venous 73.5 mmHg (38-42); PO2 Venous 142 mmHg (38-42); pH Blood Venous 7.31 (7.34-7.37)
[2020-12-24 16:12] LABS: Alanine Aminotransfer (ALT/SGP 23 U/L (12-78); Albumin, Blood 2.8 g/dL (3.4-5.0); Albumin/Globulin Ratio 0.8 (0.8-1.8); Alk Phos 68 U/L (50-136); Anion Gap 1 mmol/L (6-16); Aspartate Aminotrans (AST/SGOT 29 U/L (12-37); Bilirubin, Total 0.3 mg/dL (0.1-1.0); Blood Urea Nitrogen 33 mg/dL (8-24); Bun/Creatinine Ratio 21.7 (12.0-20.0); CO2, Blood 33 mmol/L (21-32); Calcium, Blood 8.7 mg/dL (8.5-10.1); Chloride, Blood 102 mmol/L (98-108); Creatinine, Blood 1.52 mg/dL (0.40-1.00); Ethanol (Alcohol), Blood, Med <3 mg/dL; Globulin, Blood 3.5 g/dL (2.2-4.0); Glomerular Filtration Rate 35 (60-); Glucose, Blood 98 mg/dL (70-99); Potassium, Blood 5.6 mmol/L (3.5-5.5); Sodium, Blood 136 mmol/L (136-145); Total Protein, Blood 6.3 g/dL (6.4-8.2)
[2020-12-24 16:13] LABS: International Normalized Ratio 0.92
[2020-12-24 16:31] LABS: Source, Urine Catheter
[2020-12-24 16:44] LABS: Appearance, Urine Hazy (Clear); Bilirubin, Urine Neg (Neg); Blood, Urine 3+ (Neg); Color, Urine Yellow (P-Yellow); Glucose Qualitative, Urine Neg (Neg); Ketones, Urine Neg (Neg); Leukocyte Esterase, Urine Neg (Neg); Nitrite, Urine Neg (Neg); Protein, Urine 4+ (Neg); Specific Gravity, Urine 1.025 (1.003-1.022); Urobilinogen, Urine NORM (Normal)
[2020-12-24 17:02] LABS: U Amphetamine Screen Not Detected; U Barbituate Screen Not Detected; U Benzodiazapine Screen DETECTED; U Buprenorphine Screen Not Detected; U Cannabinoids Screen Not Detected; U Cocaine Screen Not Detected; U Methadone Screen Not Detected; U Methamphetamine Screen Not Detected; U Opiates Screen Not Detected; U Oxycodone Screen Not Detected; U Phencyclidine Screen Not Detected; U Propoxyphene Screen Not Detected
[2020-12-24 17:08] LABS: Amorphous Light (0-Heavy); Bacteria Mod /hpf; Squamous Epithelial Cells Rare /hpf (Few); White Blood Cells, Urine 0-2 /hpf (0-5)
[2020-12-24] MEDS ORDERED: AMLODIPINE BESYL5 MG PO (18:42)
[2020-12-24] MEDS ORDERED: COREG12.5 MG PO (18:42)
[2020-12-24] MEDS ORDERED: COLACE100 MG PO (18:43)
[2020-12-24] MEDS ORDERED: SPIRONOLACTONE25 MG PO (18:43)
[2020-12-24] MEDS ORDERED: FUROSEMIDE20 MG PO (18:43)
[2020-12-24] MEDS ORDERED: MIRALAX17 G3 PO (18:44)
[2020-12-24] MEDS ORDERED: CALCIUM CIT 311 EACH PO (18:44)
[2020-12-24] MEDS ORDERED: ACET500 PO ×2 (20:37)
[2020-12-25 04:23] LABS: BASOPHILS ABSOLUTE AUTO 0.03 K/mm3 (0.00-0.23); BASOPHILS PERCENT AUTO 1 % (0-2); EOSINOPHILS ABSOLUTE AUTO 0.04 K/mm3 (0.00-0.68); EOSINOPHILS PERCENT AUTO 1 % (0-6); Hematocrit 42.7 % (33.0-51.0); Hemoglobin 12.9 g/dL (11.5-16.0); IMMATURE GRAN ABSOLUTE AUTO 0.08 K/mm3 (0.00-0.10); IMMATURE GRAN PERCENT AUTO 3 % (0-1); LYMPHOCYTES ABSOLUTE AUTO 0.43 K/mm3 (0.84-5.20); LYMPHOCYTES PERCENT AUTO 15 % (21-46); MONOCYTES ABSOLUTE AUTO 0.31 K/mm3 (0.16-1.47); MONOCYTES PERCENT AUTO 11 % (4-13); Mean Corpuscular HGB 32.5 pg (26.0-34.0); Mean Corpuscular HGB Conc 30.2 g/dL (31.5-36.5); Mean Corpuscular Volume 108 fL (80-100); Mean Platelet Volume 10.5 fL (9.1-12.4); NEUTROPHILS ABSOLUTE AUTO 2.02 K/mm3 (1.96-9.15); NEUTROPHILS PERCENT AUTO 69 % (41-73); Platelet Count 141 K/mm3 (150-400); RDW Coefficient Variation 12.9 % (11.7-14.2); RDW Standard Deviation 50.9 fL (35.1-46.3); Red Blood Cell Count 3.97 M/mm3 (3.80-5.20); White Blood Cell Count 2.91 K/mm3 (4.00-11.30)
[2020-12-25 04:42] LABS: Albumin, Blood 2.7 g/dL (3.4-5.0); Albumin/Globulin Ratio 0.9 (0.8-1.8); Bilirubin, Total 0.3 mg/dL (0.1-1.0); Bun/Creatinine Ratio 21.3 (12.0-20.0); Calcium, Blood 8.8 mg/dL (8.5-10.1); Creatinine, Blood 1.5 mg/dL (0.40-1.00); Globulin, Blood 2.9 g/dL (2.2-4.0); Potassium, Blood 4.8 mmol/L (3.5-5.5); Total Protein, Blood 5.6 g/dL (6.4-8.2)
[2020-12-25 04:59] LABS: PCO2 Arterial 97.8 mmHg (35-45); PO2 Arterial 59.4 mmHg (80-100)
--- NOTE | 2020-12-25 05:30 | NUR ---
SHIFT SUMMARY PT TO UNIT FROM ED. OBTUNDED ON BIPAP 08/07 3.5L BLEEDIN. SON AT BEDSIDE, HELPED WITH ADMISSION. 2100 PT WOKE UP, TORE BIPAP OFF, GETTING OOB AND SOMEWHAT COMBATIVE. PT REFUSING BIPAP MASK AFTER GETTING BACK TO BED. IT WAS NOTED THAT PT IS SEVERELY DEMENTED, SONE CONFIRMS THIS. PT CONTINUED TO REFUSE BIPAP AND PULL AT THINGS T/O SHIFT. WITH AM ABG, PH CRITICAL LOW AT 7.2 AND CO2 >90. BIPAP PLACED BACK ON, AT THIS POINT, PT NOT REFUSING. PRIOR TO THIS, NC AT 2-3L WHICH, PER REPORT, IS BASELINE. WOUNDS NOTED TO LH AND R [place], PICS IN CHART. OTHERWISE, PT OFF AND ON IMPULSIVE. BED ALARM IN PLACE. WILL CONTINUE TO MONITOR UNTIL SHIFT CHANGE.
--- NOTE | 2020-12-25 06:19 | NUR ---
MENTATION/BIPAP PT TEARING OFF BIPAP AND NOT ALLOWING IT ON. STAFF ATTEMPTING TO MAINTAIN SATS 88-92% TO PREVENT INCREASED CO2 RETENTION. PT ON RA CURRENTLY, SATTING IN BETWEEN THESE PARAMETERS, ASLEEP CURRENTLY. WILL PLACE BIPAP BACK ON SOON POSSIBLE OR WILL CALL PROVIDER FOR POSSIBLE MEDICATION.
[2020-12-25 10:48] LABS: PCO2 Arterial 65.9 mmHg (35-45); pH Blood Arterial 7.34 (7.35-7.45)
--- NOTE | 2020-12-25 14:03 | NUR ---
PT ALERT TO SELF AND FAMILY. UNABLE TO TELL ME WHY AND WHERE SHE IS. ABLE TO COMMUNICATE NEEDS AND ANSWER CARE QUESTIONS APPROPRIATLY. ON 1-2L NASAL CANNULA WHEN OFF BIPAP. PT FIGHTING BIPAP THIS AM, BREAKS GIVEN. PT WEARING BIPAP ON AND OFF THIS MORNING AND AFTERNOON. TELE SHOWING SINUS WITH PVC'S AND HR 60'S. DENIES CHEST PAIN/OVERALL PAIN. VITAL SIGNS STABLE. SPOKE WITH SON ON PHONE, PT BASELINE CONSISTS OF SOME CONFUSION DUE TO HX OF DEMENTIA. PT NORMALLY ON 2 L O2 AT [place]. USING BED SIGALA, ATTENDS IN PLACE. PT AWAKE THIS AFTERNOON AND ABLE TO DRINK WATER AND PASS NURSING BEDSIDE SWALLOW EVAL. DIET ORDERED. PT DID WELL EATING, NO CONCERNS WITH SWALLOW/ASPIRATION AT THIS TIME. WILL CONTINUE TO MONITOR.
--- NOTE | 2020-12-25 14:30 | NUR ---
PT VERY CONFUSED AT TIMES. ABLE TO WEAR BIPAP ON AND OFF TODAY FOR 1 HOUR PERIODS. PT GETS AGITATED WITH MASK AND PULLS MASK OFF. WHEN TRYING TO REAPPLY NASAL CANNULA PT HAS HARD TIME DIFFERENTIATING BETWEEN BIPAP MASK AND NASAL CANNULA. AFTER 15 MIN PT IS ABLE TO CALM DOWN AND APPLY NASAL CANNULA WITH NO ISSUES. VITAL SIGNS REMAIN STABLE. SON IN TO VISIT. PALLIATIVE CARE AND DR. GONZALEZ IN TO TALK WITH SON. PT EATING WELL AND DRINKING WATER WITH NO ISSUES.
--- NOTE | 2020-12-25 19:34 | NUR ---
SHIFT SUMMARY: NO ACUTE CHANGES. PT REMAINS CONFUSED AND FIGHTING BIPAP, CURRENTLY ON 3 L NASAL CANNULA. ABLE TO EAT DINNER AND VISIT WITH SON. VITALS REMAIN STABLE. SEE PREVIOUS NOTES. REPORTED OFF TO [employer] SPECIALIST RN.
[2020-12-26 04:05] LABS: BASOPHILS ABSOLUTE AUTO 0.02 K/mm3 (0.00-0.23); BASOPHILS PERCENT AUTO 1 % (0-2); EOSINOPHILS ABSOLUTE AUTO 0.13 K/mm3 (0.00-0.68); EOSINOPHILS PERCENT AUTO 3 % (0-6); Hematocrit 37.2 % (33.0-51.0); Hemoglobin 11.8 g/dL (11.5-16.0); IMMATURE GRAN ABSOLUTE AUTO 0.03 K/mm3 (0.00-0.10); IMMATURE GRAN PERCENT AUTO 1 % (0-1); LYMPHOCYTES ABSOLUTE AUTO 0.52 K/mm3 (0.84-5.20); LYMPHOCYTES PERCENT AUTO 13 % (21-46); MONOCYTES ABSOLUTE AUTO 0.42 K/mm3 (0.16-1.47); MONOCYTES PERCENT AUTO 11 % (4-13); Mean Corpuscular HGB 32.8 pg (26.0-34.0); Mean Corpuscular HGB Conc 31.7 g/dL (31.5-36.5); Mean Platelet Volume 10.2 fL (9.1-12.4); NEUTROPHILS ABSOLUTE AUTO 2.81 K/mm3 (1.96-9.15); NEUTROPHILS PERCENT AUTO 72 % (41-73); Platelet Count 155 K/mm3 (150-400); RDW Coefficient Variation 12.8 % (11.7-14.2); RDW Standard Deviation 48.6 fL (35.1-46.3); White Blood Cell Count 3.93 K/mm3 (4.00-11.30)
[2020-12-26 04:08] LABS: Mean Corpuscular Volume 103 fL (80-100)
[2020-12-26 04:26] LABS: Bun/Creatinine Ratio 23.8 (12.0-20.0); Calcium, Blood 8.2 mg/dL (8.5-10.1); Creatinine, Blood 1.51 mg/dL (0.40-1.00)
--- NOTE | 2020-12-26 06:49 | NUR ---
SHIFT SUMMARY PT HAS BEEN VERY CONFUSED DURING THE NIGHT. ATTEMPTED TO GET OUT OF BED SEVERAL TIMES. WAS NOT COMBATIVE OR RESISTANT TO CARE. VITALS HAVE BEEN STABLE HAS REMAINED ON NC THROUGHOUT THE NIGHT. REFUSED "OTHER MACHINE". WAS IN CHAIR FOR A FEW HOURS AND TOLERATED IT WELL. THIS MORNING AFTER AM VITALS SHE SEEMED LESS CONFUSED AND ASKED FOR A MAGAZINE TO READ. PT STS THAT THERE ARE NO LAB DRAWS OR BP'S ON RIGHT ARM. PT HAS VERBALIZED BEING ABLE TO USE CALL LIGHT BUT HAS NOT USED IT. CALL LIGHT IS WITHIN REACH. BED ALARM IS ACTIVE.
--- NOTE | 2020-12-26 15:57 | NUR ---
Family conference outside of pt's room with Dr Woodson and son, Lonny. Pt's current status, overall picture and prognosis discussed with son's questions answered. Options for care reviewed and primary goal of care identified. Son would like his mom's comfort as a primary goal and to end the cycle of frequent hospital ER and in pt visits experienced since the first of the year. Pt has had three in pt stays and two additional ER visits in the past four months. Pt was recently moved to [facility]. Today, pt is oriented to self and willing/able to participate in PT session. HH PT recommended for f/u per PT progress note. 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 She is 85 and appears frail/cachectic. She is in good spirits during today's brief visit in her room prior to our family conference. Pt is smiling and easily engaged. She was pleased with her PT session today. She did not complain of pain, nausea, anxiety or distress and I did not note any nonverbal indicators of same. Son would not want his mom to be readmitted to the hospital or to be restrained in order to help pt maintain bipap use. Plan formulated for d/c back to [facility] with bipap and HH support. [facility] was contacted by son prior to our meeting and I spoke with Eloisa after our meeting to update and confirm they feel able to provide the care pt's son is requesting. Pt has an office visit scheduled with her PCP on Saturday of this week. Plan B, per son's wishes, after review of all the options and his mom's prognosis, would be that if she is unable to tolerate or participate with nightly bipap use, enough to maintain her O2 sats and stability, PCP would be contacted for orders for hospice support/care at [facility] instead of returning to the hospital. Son and [facility] in agreement with this plan. to contact [facility] re: faye plan today if possible and if not, tomorrow am. I updated pt's RN re: above and spoke to Eloisa at [facility] at length after meeting. Son will discuss transition to hospice when appropriate at the with PCP on Lonny will also discuss above with his brother.
--- NOTE | 2020-12-26 18:14 | NUR ---
SHIFT SUMMARY PT HAS BEEN COMPLIANT WITH CARE THROUGH THE DAY, SHE HAS BEEN ALERT & APPROPRIATE. PT'S SON CAME IN TODAY TO SPEAK WITH PALLIATIVE CARE & THE PHYSICIAN ABOUT POSSIBLE HOSPICE CARE & D/C WITH CPAP. PT WILL HAVE A SLEEP STUDY DONE THIS EVENING TO EVALUATE. PT CAN BE NON-COMPLIANT WITH MASK AND GETS INCREASINGLY CONFUSED @ NIGHT. SHE IS CURRENTLY SITTING UP IN THE BEDSIDE CHAIR WATCHING TV, SNACKING ON HER DINNER TRAY, FRESH WATER GIVEN. PT IS CURRENTLY ON 2 L O2 VIA NC, VSS, RESP UNLABORED. WCTM & REPORT TO NOC RN.
--- NOTE | 2020-12-27 00:43 | NUR ---
NO MIDNIGHT VITALS, EVENING VITALS WERE STABLE. SLEEP STUDY IN SESSION.
--- NOTE | 2020-12-27 05:30 | NUR ---
SHIFT SUMMARY PT WAS CONFUSED EVENING AND IS NOW ALERT AND ORIENTED X3. HAS BEEN SLEEPING ALL NIGHT WITH OUT DISTURBANCES. SLEEP STUDY WAS IN SESSION WITH RT OVERSEEING PROCEDURE. VITALS WERE STABLE IN EVENING AND THIS MORNING. ASSIST TO BSC. PT STS THAT SHE FEELS SOB ALWAYS AND THAT HER NOSE AND THROAT HURT WHEN SWALLOWING. USES CALL LIGHT APPROPRIETLY.
[2020-12-27 05:34] LABS: PCO2 Arterial 66.6 mmHg (35-45); PO2 Arterial 53.5 mmHg (80-100); pH Blood Arterial 7.37 (7.35-7.45)
[2020-12-27 06:33] LABS: Bun/Creatinine Ratio 22.6 (12.0-20.0); Calcium, Blood 8.5 mg/dL (8.5-10.1); Creatinine, Blood 1.55 mg/dL (0.40-1.00); Potassium, Blood 4.9 mmol/L (3.5-5.5)
--- NOTE | 2020-12-27 10:32 | NUR ---
UPDATE SPOKE WITH PT'S SON FOR UPDATE. PT'S SON PLANS TO SET UP TRANSFER BACK TO [facility] WHEN PT IS READY FOR D/C.
--- NOTE | 2020-12-27 10:36 | NUR ---
UPDATE PHYSICIAN AT BEDSIDE. PT TO BE DISHCARGED HOME. DISHARGE RESTAURANT MAINTENANCE TECHNICIAN SIDNEY SETTING UP HOME BIPAP ORDERS.
--- NOTE | 2020-12-27 13:30 | NUR ---
CONSENT FOR CARE PT ALLOWED THIS STUDENT RN TO PROVIDE CARE ON 12/27/20.
--- NOTE | 2020-12-27 15:08 | NUR ---
PT DISHCARGE PT PROVIDED WITH DISCHARGE INSTRUCTION, IV REMOVED, TELE REMOVED. PT SIGNED DISCHARGE PAPERWORK. DISCHARGE PAPERWORK TO GO WITH PT TO [facility]. TRANSPORT TO ARRIVE FOR TRANFER OF PT TO [facility]. SON INFORMED. REPORT GIVEN TO [employer] AT [facility].
== END 2020-12-27 15:27 | disposition home or self-care (01) | DRG 189 ==
LOC: ER 15:24 → PCU 18:39
PROVIDERS: Family Medicine; Physician Assistant; ADMIT Internal Medicine
PROC: 5A09357 Assistance with Respiratory Ventilation, Less than 24 Consecutive Hours, Continuous Positive Airway Pressure (ICD-10-PCS; principal; 2020-12-24)
DX: J96.21 Acute and chronic respiratory failure with hypoxia (principal); G92 Toxic encephalopathy; I50.32 Chronic diastolic (congestive) heart failure; I13.0 Hypertensive heart and chronic kidney disease with heart failure and stage 1 through stage 4 chronic kidney disease, or unspecified chronic kidney disease; N17.9 Acute kidney failure, unspecified; R64 Cachexia; E87.2 Acidosis; J96.22 Acute and chronic respiratory failure with hypercapnia; N18.30 Chronic kidney disease, stage 3 unspecified; F03.90 Unspecified dementia, unspecified severity, without behavioral disturbance, psychotic disturbance, mood disturbance, and anxiety; M41.9 Scoliosis, unspecified; Z66 Do not resuscitate; M81.0 Age-related osteoporosis without current pathological fracture; G47.30 Sleep apnea, unspecified; E86.0 Dehydration; Z68.29 Body mass index [BMI] 29.0-29.9, adult; E87.5 Hyperkalemia
CPT/HCPCS: 36415; 36600; 71045; 80048; 80053; 81001; 82803; 82947; 83605; 83880; 84484; 85025; 85610; 87086; 93005; 93010; 94660; 94762; 96365; 96366; 97110; 97116; 97162; 97165; 97530; 99285-25; A9270; G0480; J0696; J1650; J7030; P9612

== ENCOUNTER 2021-01-07 19:25 | Emergency (ER) | payer MEDICARE ==
[~2021-01-07] VITALS: Ht 162.6 cm; Wt 45.4 kg
[~2021-01-07 19:25] MED LIST changes: +ACET500 PO; +AMLODIPINE BESYL5 MG PO; +CALCIUM CIT 311 EACH PO; +COLACE100 MG PO; +COREG12.5 MG PO; +FUROSEMIDE20 MG PO; +MIRALAX17 G3 PO; +SPIRONOLACTONE25 MG PO
[2021-01-07 21:04] LABS: pH Blood Arterial 7.39 (7.35-7.45)
[2021-01-07 21:45] LABS: Source, Urine Catheter
[2021-01-07 21:53] LABS: Bilirubin, Urine Neg (Neg); Blood, Urine 1+ (Neg); Glucose Qualitative, Urine Neg (Neg); Ketones, Urine Neg (Neg); Leukocyte Esterase, Urine Neg (Neg); Nitrite, Urine Neg (Neg); Protein, Urine 3+ (Neg); Urobilinogen, Urine NORM (Normal)
[2021-01-07 22:08] LABS: BASOPHILS ABSOLUTE AUTO 0.02 K/mm3 (0.00-0.23); BASOPHILS PERCENT AUTO 0 % (0-2); EOSINOPHILS ABSOLUTE AUTO 0.03 K/mm3 (0.00-0.68); EOSINOPHILS PERCENT AUTO 1 % (0-6); Hematocrit 40.9 % (33.0-51.0); IMMATURE GRAN ABSOLUTE AUTO 0.05 K/mm3 (0.00-0.10); IMMATURE GRAN PERCENT AUTO 1 % (0-1); LYMPHOCYTES ABSOLUTE AUTO 0.44 K/mm3 (0.84-5.20); LYMPHOCYTES PERCENT AUTO 8 % (21-46); MONOCYTES ABSOLUTE AUTO 0.55 K/mm3 (0.16-1.47); MONOCYTES PERCENT AUTO 10 % (4-13); Mean Corpuscular HGB 32.7 pg (26.0-34.0); Mean Corpuscular HGB Conc 31.8 g/dL (31.5-36.5); Mean Corpuscular Volume 103 fL (80-100); Mean Platelet Volume 9.6 fL (9.1-12.4); NEUTROPHILS ABSOLUTE AUTO 4.37 K/mm3 (1.96-9.15); NEUTROPHILS PERCENT AUTO 80 % (41-73); Platelet Count 163 K/mm3 (150-400); RDW Coefficient Variation 12.4 % (11.7-14.2); RDW Standard Deviation 47.6 fL (35.1-46.3); Red Blood Cell Count 3.98 M/mm3 (3.80-5.20); White Blood Cell Count 5.46 K/mm3 (4.00-11.30)
[2021-01-07 22:10] LABS: Albumin, Blood 3.1 g/dL (3.4-5.0); Bilirubin, Total 0.4 mg/dL (0.1-1.0); Bun/Creatinine Ratio 23.7 (12.0-20.0); Calcium, Blood 9.5 mg/dL (8.5-10.1); Creatinine, Blood 1.69 mg/dL (0.40-1.00); Globulin, Blood 3.1 g/dL (2.2-4.0); Magnesium, Blood 2.5 mg/dL (1.6-2.4); Potassium, Blood 5.6 mmol/L (3.5-5.5); Total Protein, Blood 6.2 g/dL (6.4-8.2)
[2021-01-07 22:18] LABS: Appearance, Urine Hazy (Clear); Color, Urine Yellow (P-Yellow)
[2021-01-07 22:19] LABS: Amorphous Heavy (0-Heavy); Bacteria Rare /hpf; Red Blood Cells, Urine 0-2 /hpf (0-2); Squamous Epithelial Cells Not Seen /hpf (Few); White Blood Cells, Urine Not Seen /hpf (0-5)
[2021-01-07] MEDS ORDERED: DULCOLAX400 MG/5 M (22:19)
[2021-01-07] MEDS ORDERED: GUAI600T33 PO (22:19)
== END 2021-01-07 23:05 | disposition home or self-care (01) ==
LOC: ER 19:25
PROVIDERS: Emergency Medicine
DX: F03.90 Unspecified dementia, unspecified severity, without behavioral disturbance, psychotic disturbance, mood disturbance, and anxiety (principal); Z79.899 Other long term (current) drug therapy
CPT/HCPCS: 36415; 36600; 71045; 80053; 81001; 82803; 83735; 84145; 85025; 93005; 93010; 99284-25

== ENCOUNTER → 2021-01-27 | Outpatient (CLI) | payer MEDICARE ==
[~2021-01-27] MED LIST changes: +DULCOLAX400 MG/5 M; +GUAI600T33 PO
== END | disposition home or self-care (01) ==
LOC: LAB SHORT 17:28 → LAB 17:28
DX: S81.801D Unspecified open wound, right lower leg, subsequent encounter (principal)
CPT/HCPCS: 87070; 87075; 87077; 87147; 87186; 87205

== ENCOUNTER → 2021-02-16 | Outpatient (CLI) | payer MEDICARE ==
[2021-02-16 14:11] LABS: Bun/Creatinine Ratio 29.8 (12.0-20.0); Calcium, Blood 8.8 mg/dL (8.5-10.1); Creatinine, Blood 1.51 mg/dL (0.40-1.00); Potassium, Blood 5.5 mmol/L (3.5-5.5)
== END | disposition home or self-care (01) ==
LOC: LAB 12:32 → LAB SHORT 12:32
PROVIDERS: Internal Medicine Cardiovascular Disease
DX: I11.0 Hypertensive heart disease with heart failure (principal); I50.32 Chronic diastolic (congestive) heart failure
CPT/HCPCS: 80048